=== PATIENT | female | born 1985 | race Caucasian/White ===

== ENCOUNTER 2017-10-22 05:47 | Observation (INO) ==
[2017-10-22] MEDS ORDERED: Neostigmine Inj 5 MG/5 ML Syringe IV.PUSH ONE (12:00)
[2017-10-22] MEDS ORDERED: Glycopyrrolate Inj 1 MG/5 ML Syringe IV.PUSH ONE (12:00)
[2017-10-22] MEDS ORDERED: Lidocaine PF 1% Inj 5 ML Syringe INFILTRATN ONE (12:00)
[2017-10-22] MEDS ORDERED: Ketorolac Inj 30 MG/ML (IVP) Vial IV.PUSH ONE (12:00)
[2017-10-22] MEDS ORDERED: fentaNYL Citrate Inj 250 MCG/5 ML Ampul ONE (12:56)
[2017-10-22] MEDS ORDERED: Bupivacaine/Epinephrine Inj 0.25% 50 ML Vial ONE (13:08)
[2017-10-22] MEDS ORDERED: Acetaminophen 325 MG Tablet PO PRN (13:56)
[2017-10-22] MEDS ORDERED: Bisacodyl 10 MG Supp RECTAL PRN (13:56)
[2017-10-22] MEDS ORDERED: Temazepam 15 MG Capsule PO PRN (13:56)
--- NOTE | 2017-10-22 13:56 | P.HP ---
History of Present Illness Primary Care Physician: No Primary Care Physician Chief Complaint: Abdominal pain Nausea and vomit. History of Present Illness: This is a pleasant 31 y/o Female who came to ER with two days of epigastric pain and right upper quadrant pain, nausea and vomit yesterday but that has resolved. 09/20 in intensity, she woke up from sleep at 5 am today, Yesterday she went to [facility] and had an ultrasound of her gallbladder done was told that it was "full of stones". She was told that she needed to have outpatient cholecystectomy. She was given pain medicine and her pain improved and then came back again this morning. Patient states she is actually been having problems with her gallbladder for over a year. Pain increases with certain foods such as chocolate and onions. Patient denies fever or urinary symptoms. Seen in her bedroom in the presence of her , stable at this time will go to OR. will continue antibiotics as recommended by ER physician for Acute cholecystitis. Inpatient Certification: I certify that the inpatient services were ordered in accordance with Medicare regulations governing the order. This includes certification that hospital inpatient services are reasonable and necessary and in the case of services not specified as inpatient-only under 42 CFR 419.22(n), that they are appropriately provided as inpatient services in accordance to with the 2-midnight benchmark under 43 CFR 412.3(e) Review of Systems All other systems reviewed negative except as stated in [facility]PI [facility] - History History Provided By: Patient - Surgical History Surgical History: Surgical History (Last Updated 10/22/17 @ 13:49 by Farhat Devlin MD) History of appendectomy - Family History Family History: Family History (Last Updated 10/22/17 @ 13:51 by Farhat Devlin MD) Other No family history of cancer - Tobacco History Second Hand Smoke Exposure: No Tobacco Use In Past 30 Days: Yes Smoking Status: Current every day smoker Tobacco Type: Cigarettes - Alcohol History How Often Do You Have a Drink Containing Alcohol: Never - Substance Use History Substance History: No History of Abuse - Immunization History Hx Influenza Vaccine This Season: No Medications and Allergies Allergies Allergy/AdvReac Type Severity Reaction Status Date / Time codeine Allergy Severe Anaphylaxis Verified 10/22/17 06:44 promethazine Allergy Intermediate Anxiety Verified 10/22/17 06:44 Home Medications Medication Instructions Recorded Confirmed Type No Known Home Medications 10/22/17 10/22/17 History Exam Vital signs: Intake & Output 10/21/17 10/22/17 10/22/17 18:59 06:59 18:59 Weight 103.18 kg Other: Weight On Admission 103.18 kg Narrative: Exam Narrative: GENERAL: Well-developed well-nourished female. Appearing uncomfortable but in no acute distress SKIN: Focused skin assessment warm/dry. HEAD: Atraumatic. Normocephalic. EYES: Pupils equal and round. No scleral icterus. No injection or drainage. ENT: No nasal bleeding or discharge. Mucous membranes pink and moist. NECK: Trachea midline. No JVD. CARDIOVASCULAR: Regular rate and rhythm. No murmur appreciated. RESPIRATORY: No accessory muscle use. Clear to auscultation. Breath sounds equal bilaterally. GASTROINTESTINAL: Abdomen soft, moderate epigastric tenderness palpation, marked right upper quadrant tenderness palpation, positive [place] sign., nondistended. Hepatic and splenic margins not palpable. MUSCULOSKELETAL: No obvious deformities. No clubbing. No cyanosis. No edema. NEUROLOGICAL: Awake and alert. No obvious cranial nerve deficits. Motor grossly within normal limits. Normal speech. PSYCHIATRIC: Appropriate mood and affect; insight and judgment normal. Results - Imaging Radiologist's impression: Gallbladder Ultrasound 10/22/17 06:22 CONCLUSION: Caprini VTE Risk Assessment Caprini VTE Risk Assessment: No/Low Risk (score <= 1) (DVT prophylaxis as per General Surgery after procedure performed.) Caprini Risk Assessment Model: Point Value = 1 Point Value = 2 Point Value = 3 Point Value = 5 Age 41-60 Minor surgery BMI > 25 kg/m2 Swollen legs Varicose veins or History of unexplained or recurrent spontaneous Oral contraceptives or hormone replacement Sepsis (< 1 month) Serious lung disease, including pneumonia (< 1 month) Abnormal pulmonary function Acute myocardial infarction Congestive heart failure (< 1 month) History of inflammatory bowel disease Medical patient at bed rest Age 61-74 Arthroscopic surgery Major open surgery (> 45 min) Laparoscopic surgery (> 45 min) Malignancy Confined to bed (> 72 hours) Immobilizing plaster cast Central venous access Age >= 75 History of VTE Family history of VTE Factor V Leiden Prothrombin [id number] Lupus anticoagulant Anticardiolipin antibodies Elevated serum homocysteine Heparin-induced thrombocytopenia Other congenital or acquired thrombophilia Stroke (< 1 month) Elective arthroplasty Hip, pelvis, or leg fracture Acute spinal cord injury (< 1 month) Prophylaxis Regimen: Total Risk Factor Score Risk Level Prophylaxis Regimen 0-1 Low Early ambulation 2 Moderate Order ONE of the following: *Sequential Compression Device (SCD) *Heparin 5000 units SQ BID 3-4 Higher Order ONE of the following medications: *Heparin 5000 units SQ TID *Enoxaparin/Lovenox 40 mg SQ daily (WT < 150 kg, CrCl > 30 mL/min) *Enoxaparin/Lovenox 30 mg SQ daily (WT < 150 kg, CrCl > 10-29 mL/min) *Enoxaparin/Lovenox 30 mg SQ BID (WT < 150 kg, CrCl > 30 mL/min) AND/OR *Sequential Compression Device (SCD) 5 or more Highest Order ONE of the following medications: *Heparin 5000 units SQ TID (Preferred with Epidurals) *Enoxaparin/Lovenox 40 mg SQ daily (WT < 150 kg, CrCl > 30 mL/min) *Enoxaparin/Lovenox 30 mg SQ daily (WT < 150 kg, CrCl > 10-29 mL/min) *Enoxaparin/Lovenox 30 mg SQ BID (WT < 150 kg, CrCl > 30 mL/min) AND *Sequential Compression Device (SCD) Assessment and Plan - Plan 1. Liver is mildly enlarged and increased in echogenicity which can be seen with hepatic steatosis versus hepatocellular dysfunction. 2. Cholelithiasis with mild gallbladder wall thickening. No pericholecystic fluid. 1. Acute Cholecystitis ultrasound shows cholelithiasis with gallbladder wall thickening , leukocytosis liver enzymes within normal limits, patient started on Cipro/Flagyl, or tachycardia continue by IV and at this time will go to OR for Laparoscopic Cholecystectomy by General tool specialist Doctor Crispin, WBC 12.9 2. Obesity strongly recommended diet and exercise 3. Tobacco dependence strongly recommended to stop smoking. DVT prophylaxis with SCDs. Code Status: Full code. Discussed Condition With: Patient and her in the room. Discharge Planning: Once cleared by general Surgery.
[2017-10-22] MEDS ORDERED: Morphine Inj 4 MG/ML Vial IV.PUSH PRN (14:01)
--- NOTE | 2017-10-22 16:02 | P.OP ---
- Preoperative Diagnosis (1) Acute calculous cholecystitis - Postoperative Diagnosis (1) Acute calculous cholecystitis Date of procedure: 10/22/17 Procedure: Laparoscopic cholecystectomy Anesthesia: VINICIO Surgeon: Jeffrey Roa MD Comfort Filler: Edward Huff CFA Estimated blood loss (mL): 20 IV fluids (mL): 500 Pathology: other (Gallbladder and contents to pathology) Operation and Findings: Patient was taken to the operating room and placed on the operating table in the supine position. After an adequate level of general endotracheal anesthesia was achieved the abdomen was prepped and draped in the usual fashion. Time-out was taken, confirming the correct patient, site, and procedure to be performed. Skin and subcutaneous tissue was infiltrated with local anesthetic and an incision made in the lower part of the umbilical skin. The fascia was divided sharply and the peritoneal cavity directly visualized. A 12mm balloon trocar was inserted and the balloon inflated. The abdomen was insufflated. The patient was placed in reverse Trendelenburg position. Three 5 mm trocars were then placed, with the first to the right of falciform ligament, and the second and third in the right subcostal region. All entered the abdominal cavity under direct vision uneventfully. The fundus of the gallbladder was grasped and retracted up and over the dome of the liver. The cystic duct-infundibular junction and cystic artery were circumferentially dissected. There was also a smaller anterior branch of the cystic artery coming across the anterior surface of the cystic duct. This was doubly clipped proximally, singly clipped on the gallbladder side and divided. The more dominant posterior branch was singly clipped on the gallbladder side, doubly clipped proximally and divided as well. This allowed for the cystic duct to be circumferentially dissected and better defined. As the patient had normal liver function tests, nondilated common duct and essentially normal liver function tests, cholangiogram was not obtained. The cystic duct was doubly clipped distally, singly clipped on the gallbladder side and divided. The gallbladder was dissected off the liver bed with electrodissection. The gallbladder was placed into an Endo Catch device and removed via the umbilical port while observing via the upper 5 mm trocar site. The upper abdomen was re-visualized. One small bleeding point on the liver bed was controlled with electrocautery. The cystic artery stumps and cystic duct stump were all seen to be clean and dry. All irrigation was aspirated from the abdominal cavity. Insufflation was discontinued. The upper abdominal trocars were removed under direct vision. No bleeding was noted from the trocar sites. The laparoscope and umbilical port were removed. The fascia was closed in the umbilicus with 0 Vicryl suture in both simple interrupted and figure-of- eight fashion. The remaining local anesthetic was injected into each of the trocar sites. The skin was closed at all 4 trocar sites with 4-0 Vicryl in interrupted buried fashion. All sites were dressed with Steri-Strips. The patient was extubated and taken back to the recovery room in stable condition. She tolerated the procedure well.
[2017-10-22] MEDS: Sod Chloride 0.9% Inj 1,000 ML IV.CONT SCH (16:30)
[2017-10-22] MEDS: Ketorolac Inj 30 MG/ML (IVP) Vial IV.PUSH PRN ×2 (16:59→22:29)
[2017-10-22] MEDS: Senna/Docusate Sodium 8.6/50 MG Tablet PO SCH (21:16)
[2017-10-22] MEDS: Ciprofloxacin 200 MG/100 ML 200 MG/100 ML PIGGYBACK IV.SIG SCH (22:30)
[2017-10-23] MEDS: Sod Chloride 0.9% Inj 1,000 ML IV.CONT SCH ×2 (00:17→09:24)
[2017-10-23 06:26] LABS: Albumin 3.1 g/dL (3.4-5.0); Anion Gap 8 meq/L (5-15); Aspartate Aminotransferase 40 U/L (15-37); Blood Urea Nitrogen 10 mg/dL (7-18); Calcium 8.1 mg/dL (8.5-10.1); Carbon Dioxide 22.8 meq/L (21.0-32.0); Chloride 111 meq/L (98-107); Glomerular Filtration Rate Greater Than 89 mL/min (>89); Glucose,Random 108 mg/dL (74-106); Sodium 142 meq/L (136-145)
[2017-10-23 06:29] LABS: Alanine Aminotransferase 48 U/L (10-53); Alkaline Phosphatase 100 U/L (45-117); Total Protein 6.5 g/dL (6.4-8.2)
[2017-10-23] MEDS: Ketorolac Inj 30 MG/ML (IVP) Vial IV.PUSH PRN (08:08)
[2017-10-23] MEDS: Senna/Docusate Sodium 8.6/50 MG Tablet PO SCH (09:24)
--- NOTE | 2017-10-23 10:01 | P.PN ---
Subjective Interval history: This is a pleasant 31 y/o Female Seen in ER with abdominal pain, nausea and vomit, with Diagnosis of Acute Calculous cholecystitis status post Laparoscopic cholecystectomy by doctor Jeffrey Roa 10/22/17 Seen in her bedroom stable okay to discharge from technology specialist if tolerates diet, given order after able to tolerate diet and given script for pain medicine and antibiotics. Physical Exam Vital signs: Vital Signs 10/22/17 12:10 10/22/17 15:10 10/22/17 15:15 Temperature 97.6 F 99 F Pulse Rate 69 70 70 Respiratory Rate 18 14 14 Blood Pressure 132/77 119/65 Pulse Oximetry 98 100 100 10/22/17 15:20 10/22/17 15:30 10/22/17 15:45 Temperature Pulse Rate 61 56 L Respiratory Rate 14 14 Blood Pressure 100/56 L 100/56 L Pulse Oximetry 100 100 100 10/22/17 16:00 10/22/17 16:15 10/22/17 17:00 Temperature 97.8 F 97.7 F Pulse Rate 56 L 67 59 L Respiratory Rate 14 14 16 Blood Pressure 101/58 L 104/60 96/51 L Pulse Oximetry 100 96 96 10/22/17 20:00 10/23/17 00:00 10/23/17 04:00 Temperature 98.5 F 98.2 F 97.7 F Pulse Rate 76 69 63 Respiratory Rate 18 18 18 Blood Pressure 112/57 L 120/60 109/62 Pulse Oximetry 97 95 94 L 10/23/17 08:00 Temperature 97.3 F L Pulse Rate 55 L Respiratory Rate 16 Blood Pressure 104/65 Pulse Oximetry 96 Intake & Output 10/22/17 10/23/17 10/23/17 18:59 06:59 18:59 Intake Total 820 / 820 240 / 240 1300 / 1300 Output Total 20 / 20 Balance 800 / 800 240 / 240 1300 / 1300 Weight 103.18 kg Intake: IV 200 / 200 1300 / 1300 NS Inj 1,000 ML @ 100 mls/hr IV 1000 / 1000 .CONT .Q10H MATHIEU Rx#:[id number] Cipro 200 MG/100 ML Inj 200 mg 100 / 100 In 100 ml @ 100 mls/hr IV.SIG Q12H MATHIEU Rx#:[id number] Flagyl 500 MG Inj 100 ML @ 100 200 / 200 200 / 200 mls/hr IV.SIG Q8H MATHIEU Rx#: [id number] Oral 120 / 120 240 / 240 Anesthesia Amount 500 / 500 Output: Estimated Blood Loss 20 / 20 Other: # Voids 2 2 Weight On Admission 103.18 kg Narrative: GENERAL: Well-developed well-nourished female. Appearing uncomfortable but in no acute distress SKIN: Focused skin assessment warm/dry. HEAD: Atraumatic. Normocephalic. EYES: Pupils equal and round. No scleral icterus. No injection or drainage. ENT: No nasal bleeding or discharge. Mucous membranes pink and moist. NECK: Trachea midline. No JVD. CARDIOVASCULAR: Regular rate and rhythm. No murmur appreciated. RESPIRATORY: No accessory muscle use. Clear to auscultation. Breath sounds equal bilaterally. GASTROINTESTINAL: Soft, clean surgical wounds. MUSCULOSKELETAL: No obvious deformities. No clubbing. No cyanosis. No edema. NEUROLOGICAL: Awake and alert. No obvious cranial nerve deficits. Motor grossly within normal limits. Normal speech. PSYCHIATRIC: Appropriate mood and affect; insight and judgment normal. Results - Labs CBC & Chem 7: 10/23/17 04:55 Laboratory Results - last 24 hr 10/23/17 04:55 Sodium 142 Potassium 4.0 Chloride 111 H Carbon Dioxide 22.8 Anion Gap 8 BUN 10 Creatinine 0.59 Estimated GFR Greater than 89 Random Glucose 108 H Calcium 8.1 L Total Bilirubin 0.2 AST 40 H ALT 48 Alkaline Phosphatase 100 Total Protein 6.5 D Albumin 3.1 L Assessment and Plan - Plan 1. Acute Cholecystitis ultrasound shows cholelithiasis with gallbladder wall thickening , leukocytosis liver enzymes within normal limits, patient started on Cipro/Flagyl, or tachycardia continue by IV and at this time will go to OR for Laparoscopic Cholecystectomy by General vocational services specialist Doctor Roa, WBC 12.9, With Diagnosis of Acute Calculous cholecystitis status post Laparoscopic cholecystectomy by doctor Jeffrey Roa 10/22/17 okay to discharge now. 2. Obesity strongly recommended diet and exercise 3. Tobacco dependence strongly recommended to stop smoking. DVT prophylaxis with SCDs. Code Status: Full Code. Discussed Condition With: patient and her in the room. Discharge Planning: Once cleared by general Surgery.
[2017-10-23] MEDS: Ciprofloxacin 200 MG/100 ML 200 MG/100 ML PIGGYBACK IV.SIG SCH (10:45)
--- NOTE | 2017-10-23 10:45 | P.PNGS ---
Subjective Patient reports: no new complaints (ambulating, no flatus, pain better) Physical Exam Vital signs: Vital Signs 10/22/17 12:10 10/22/17 15:10 10/22/17 15:15 Temperature 97.6 F 99 F Pulse Rate 69 70 70 Respiratory Rate 18 14 14 Blood Pressure 132/77 119/65 Pulse Oximetry 98 100 100 10/22/17 15:20 10/22/17 15:30 10/22/17 15:45 Temperature Pulse Rate 61 56 L Respiratory Rate 14 14 Blood Pressure 100/56 L 100/56 L Pulse Oximetry 100 100 100 10/22/17 16:00 10/22/17 16:15 10/22/17 17:00 Temperature 97.8 F 97.7 F Pulse Rate 56 L 67 59 L Respiratory Rate 14 14 16 Blood Pressure 101/58 L 104/60 96/51 L Pulse Oximetry 100 96 96 10/22/17 20:00 10/23/17 00:00 10/23/17 04:00 Temperature 98.5 F 98.2 F 97.7 F Pulse Rate 76 69 63 Respiratory Rate 18 18 18 Blood Pressure 112/57 L 120/60 109/62 Pulse Oximetry 97 95 94 L 10/23/17 08:00 Temperature 97.3 F L Pulse Rate 55 L Respiratory Rate 16 Blood Pressure 104/65 Pulse Oximetry 96 Intake & Output 10/22/17 10/23/17 10/23/17 18:59 06:59 18:59 Intake Total 820 / 820 240 / 240 1300 / 1300 Output Total 20 / 20 Balance 800 / 800 240 / 240 1300 / 1300 Weight 103.18 kg Intake: IV 200 / 200 1300 / 1300 NS Inj 1,000 ML @ 100 mls/hr IV 1000 / 1000 .CONT .Q10H MATHIEU Rx#:[id number] Cipro 200 MG/100 ML Inj 200 mg 100 / 100 In 100 ml @ 100 mls/hr IV.SIG Q12H MATHIEU Rx#:[id number] Flagyl 500 MG Inj 100 ML @ 100 200 / 200 200 / 200 mls/hr IV.SIG Q8H MATHIEU Rx#: [id number] Oral 120 / 120 240 / 240 Anesthesia Amount 500 / 500 Output: Estimated Blood Loss 20 / 20 Other: # Voids 2 2 Weight On Admission 103.18 kg - Routine Respiratory Exam Present: CTA bilaterally - Routine Cardiovascular Exam Present: RRR - Routine Abdominal Exam Present: soft (incisional tenderness) Assessment and Plan - Plan POD 1 Lap noam PLAN Soft diet oob pain control po d/c planning from surgery stand point
--- NOTE | 2017-10-23 11:14 | P.DS ---
Date of admission: 10/22/17 12:00 Primary care physician: No Primary Care Physician Attending physician on discharge: Farhat Devlin Anticipated date of discharge: 10/23/17 Brief History from admission: This is a pleasant 31 y/o Female who came to ER with two days of epigastric pain and right upper quadrant pain, nausea and vomit yesterday but that has resolved. 7/10 in intensity, she woke up from sleep at 5 am today, Yesterday she went to [facility] and had an ultrasound of her gallbladder done was told that it was "full of stones". She was told that she needed to have outpatient cholecystectomy. She was given pain medicine and her pain improved and then came back again this morning. Patient states she is actually been having problems with her gallbladder for over a year. Pain increases with certain foods such as chocolate and onions. Patient denies fever or urinary symptoms. Seen in her bedroom in the presence of her , stable at this time will go to OR. will continue antibiotics as recommended by ER physician for Acute cholecystitis. DS: Diagnosis - Discharge Diagnosis (1) Acute calculous cholecystitis Status: Acute (2) Obesity (BMI 30.0-34.9) Status: Acute DS: Medications - Discharge Medications Prescriptions: ciprofloxacin HCl [Cipro] 500 mg PO BID 5 Days #20 tab hydrocodone-acetaminophen [[place]] 1 tab PO Q4-6H PRN 3 Days #20 tab PRN Reason: pain metronidazole [Flagyl] 500 mg PO TID 5 Days #30 tab DS: Summary Hospital Course: 1. Acute Cholecystitis ultrasound shows cholelithiasis with gallbladder wall thickening , leukocytosis liver enzymes within normal limits, patient started on Cipro/Flagyl, or tachycardia continue by IV and at this time will go to OR for Laparoscopic Cholecystectomy by General emr implementation specialist Doctor Crispin, WBC 12.9, With Diagnosis of Acute Calculous cholecystitis status post Laparoscopic cholecystectomy by doctor Jeffrey Roa 10/22/17 okay to discharge now. 2. Obesity strongly recommended diet and exercise 3. Tobacco dependence strongly recommended to stop smoking. DVT prophylaxis with SCDs. Code Status: Full Code. Discussed Condition With: patient and her in the room. Discharge Planning: Once cleared by general Surgery. - Time Spent with Patient Total time spent providing and/or coordinating discharge services: Less than 30 minutes - Quality: VTE Deep Vein Thrombosis/Pulmonary Embolism Present on Admission: No Exam Vital signs: Vital Signs 10/22/17 12:10 10/22/17 15:10 10/22/17 15:15 Temperature 97.6 F 99 F Pulse Rate 69 70 70 Respiratory Rate 18 14 14 Blood Pressure 132/77 119/65 Pulse Oximetry 98 100 100 10/22/17 15:20 10/22/17 15:30 10/22/17 15:45 Temperature Pulse Rate 61 56 L Respiratory Rate 14 14 Blood Pressure 100/56 L 100/56 L Pulse Oximetry 100 100 100 10/22/17 16:00 10/22/17 16:15 10/22/17 17:00 Temperature 97.8 F 97.7 F Pulse Rate 56 L 67 59 L Respiratory Rate 14 14 16 Blood Pressure 101/58 L 104/60 96/51 L Pulse Oximetry 100 96 96 10/22/17 20:00 10/23/17 00:00 10/23/17 04:00 Temperature 98.5 F 98.2 F 97.7 F Pulse Rate 76 69 63 Respiratory Rate 18 18 18 Blood Pressure 112/57 L 120/60 109/62 Pulse Oximetry 97 95 94 L 10/23/17 08:00 Temperature 97.3 F L Pulse Rate 55 L Respiratory Rate 16 Blood Pressure 104/65 Pulse Oximetry 96 Intake & Output 10/22/17 10/23/17 10/23/17 18:59 06:59 18:59 Intake Total 820 / 820 240 / 240 1300 / 1300 Output Total 20 / 20 Balance 800 / 800 240 / 240 1300 / 1300 Weight 103.18 kg Intake: IV 200 / 200 1300 / 1300 NS Inj 1,000 ML @ 100 mls/hr IV 1000 / 1000 .CONT .Q10H MATHIEU Rx#:[id number] Cipro 200 MG/100 ML Inj 200 mg 100 / 100 In 100 ml @ 100 mls/hr IV.SIG Q12H MATHIEU Rx#:[id number] Flagyl 500 MG Inj 100 ML @ 100 200 / 200 200 / 200 mls/hr IV.SIG Q8H MATHIEU Rx#: [id number] Oral 120 / 120 240 / 240 Anesthesia Amount 500 / 500 Output: Estimated Blood Loss 20 / 20 Other: # Voids 2 2 Weight On Admission 103.18 kg Narrative: GENERAL: Well-developed well-nourished female. Appearing uncomfortable but in no acute distress SKIN: Focused skin assessment warm/dry. HEAD: Atraumatic. Normocephalic. EYES: Pupils equal and round. No scleral icterus. No injection or drainage. ENT: No nasal bleeding or discharge. Mucous membranes pink and moist. NECK: Trachea midline. No JVD. CARDIOVASCULAR: Regular rate and rhythm. No murmur appreciated. RESPIRATORY: No accessory muscle use. Clear to auscultation. Breath sounds equal bilaterally. GASTROINTESTINAL: Soft, clean surgical wounds. MUSCULOSKELETAL: No obvious deformities. No clubbing. No cyanosis. No edema. NEUROLOGICAL: Awake and alert. No obvious cranial nerve deficits. Motor grossly within normal limits. Normal speech. PSYCHIATRIC: Appropriate mood and affect; insight and judgment normal. Results Procedures completed during hospitalization: LAPAROSCOPIC CHOLECYSTECTOMY Labs on day of discharge: Labs from last 24 hours 10/23/17 04:55 Sodium 142 Potassium 4.0 Chloride 111 H Carbon Dioxide 22.8 Anion Gap 8 BUN 10 Creatinine 0.59 Estimated GFR Greater than 89 Random Glucose 108 H Calcium 8.1 L Total Bilirubin 0.2 AST 40 H ALT 48 Alkaline Phosphatase 100 Total Protein 6.5 D Albumin 3.1 L Discharge Plan - Discharge Disposition Patient Disposition: Discharge Home - Discharge Condition Condition: Good - Discharge Order Discharge Orders: Discharge Order (Routine); Ordered 10/23/17 Ordered By: Farhat Devlin - Discharge Details Anticipated Discharge Date: 10/23/17 Discharge Comment: Follow with General Surgery as scheduled. - Physicians Team Primary Care Provider: Primary Care Felicia Tobar Attending Provider: Farhat Devlin Other Providers: Surgeons,[facility] - Rxs /Orders / Referrals /Forms Prescriptions: New ciprofloxacin HCl [Cipro] 250 mg Tablet 500 mg PO BID 5 Days Qty: 20 RF: 0 hydrocodone-acetaminophen [[place]] 5-325 mg Tablet 1 tab PO Q4-6H PRN (Reason: pain) 3 Days Qty: 20 RF: 0 metronidazole [Flagyl] 250 mg Tablet 500 mg PO TID 5 Days Qty: 30 RF: 0 No Action No Known Home Medications Referrals: Jeffrey Roa MD [GENERAL SURGERY] - See Instructions (*Call Tuesday morning to schedule appointment*) Primary Care Felicia Tobar [Primary Care Provider] - See Instructions ([address], [place], [place] [phone] -Please call the morning of you would like to be seen Sera christy same day appts. ) - Discharge Instructions Patient Printed Instructions: Laparoscopic Cholecystectomy (DC)
== END 2017-10-23 14:55 | disposition home or self-care (01) ==
LOC: N07 05:47 → NEDDLT 05:47 → N07 12:00 → INTOOBSV 13:56
PROVIDERS: ADMIT Internal Medicine; ATTEND Internal Medicine